=== PATIENT | female | born 1985 | race Caucasian/White ===

== ENCOUNTER 2020-01-08 18:13 | Inpatient (IN) | payer OTHER ==
[2020-01-08] MEDS ORDERED: PROMETHAZINE HCL 25 MG/1 ML VIAL IVPUSH ONE (20:23)
[2020-01-08] MEDS ORDERED: BUTORPHANOL TARTRATE 1 MG/ML VIAL IVPB ONE (20:23)
[2020-01-08] MEDS ORDERED: AMPICILLIN - 2 GM in SODIUM CHLORIDE 100 ML IVPB ONE ×2 (20:29→20:43)
[2020-01-08] MEDS ORDERED: ELECTROLYTE-148 SOLN 1,000 ML IV SCH (20:30)
[2020-01-08] MEDS ORDERED: OXYTOCIN 30 UNITS in 0.9% NS 30 UNIT/500 ML INFUS.BAG IVPB SCH (20:30)
--- NOTE | 2020-01-08 20:37 | HP ---
Past Medical History - Primary Care Physician PCP:: Miguel Angel Nelson - Admission Chief Complaint: 34yo P0 with at EGA 39wks with painful contractions since 10am on 01/06/2020. History of Present Illness: Pt was seen in-office this morning and noted to be in early labor. She went home and came back to L&D with painful contractions. No LOF, no VB (has some spotting), reports good FM. History Source: Patient, Medical Record Limitations to Obtaining History: No Limitations - Past Medical History ANDROID PLATFORM DEVELOPER: No: Alzheimer's, CVA, Dementia, Migraine, Multiple Sclerosis, Peripheral Neuropathy, Parkinson's, Seizure, Syncope, TIA, Vertigo, Other Cardiovascular: No: AFIB, Aneurysm, Aortic Insufficiency, Aortic Stenosis, CAD, CHF, Deep Vein Thrombosis, HTN, Hyperlipdemia, MN, Mitral Insufficiency, Mitral Stenosis, Murmur, Pulmonary Hypertension, Other Pulmonary: No: Asthma, Bronchitis, Cancer, COPD, O2 Dependent, Pneumonia, Previously Intubated, Pulmonary Embolus, Pulmonary Fibrosis, Sleep Apnea, Other Gastrointestinal: Yes: Other (Ulcerative proctitis) Hepatobiliary: No: Cirrhosis, Cholelithiasis, Cholecystitis, Choledocholithiasis, Hepatitis A, Hepatitis B, Hepatitis C, Other Renal/: No: Renal Failure, Renal Inusuff, BPH, Cancer, Hematuria, Hemodialysis, Neurogenic Bladder, Renal Calculi, UTI, Other Reproductive: No: Ectopic , Endometriosis, Fibroids, PID, Polycystic Ovary Syndrome, Postmenopausal, Other ...: 1 ...Para: 0 ...Term: 0 ...: 0 ...Spon : 0 ...Induced : 0 ...Living Children: 0 ...LMP: 04/10/19 ... Weeks Gestation by Dates: 39.0 ...EDC by Dates: 01/15/20 Heme/Onc: No: Anemia, B12 Deficiency, Bleeding Disorder, Cancer, Current Chemotherapy, Current Radiation Therapy, Hemochromatosis, Hypercoaguable State, Myeloproliferative Synd, Sickle Cell Disease, Sickle Cell Trait, Thrombocytopenia, Other Infectious Disease: No: AIDS, C-Diff, Herpes Zoster, HIV, MRSA, STD's, Tuberculosis, VREF, Other Psych: No: Addictions, Anxiety, Bipolar, Depression, Panic, Psychosis, Schizophrenia, Other Musculoskeletal: No: Bursitis, Chronic low back pain, Hemiparesis, Hemiplegia, Osteoarthritis, Paraplegia, Other Rheumatology: No: Fibromyalgia, Gout, Lupus, Rheumatoid Arthritis, Sarcoidosis, Vasculitis, Other ENT: No: Allergic Rhinitis, Sinusitis, Other Endocrine: No: Allen's Disease, [place]'s Disease, Diabetes Insipidus, Diabetes Mellitus, Hyperparathyroidism, Hyperthyroidism, Hypothyroidism, Osteopenia, SIADH, Other Dermatology: Yes: Other (Seborrheic dermatitis) - Past Surgical History Past Surgical History: Yes: None Hx Myomectomy: No Hx Transabdominal Cerclage: No Additional Surgical History: ENT nasal septum surgery, inverted nipples surgery - Advance Directives Advance Directives: No: Living Will, Health Care Proxy, DNR, Organ Donor, Tissue Donor, MOLST - Smoking History Smoking history: Never smoked Have you smoked in the past 12 months: No - Alcohol/Substance Use Hx Alcohol Use: No History of Substance Use: reports: None - Social History Usual Living Arrangement: Yes: With Spouse Do you think of yourself as: Straight/Heterosexual ADL: Independent History of Recent Travel: No Home Medications - Allergies Allergies/Adverse Reactions: Allergies Allergy/AdvReac Type Severity Reaction Status Date / Time No Known Allergies Allergy Verified 01/08/20 18:22 - Home Medications Home Medications: Ambulatory Orders Pnv No.95/Ferrous Fum/Folic AC [ Formula] 1 each PO DAILY 12/04/19 Mesalamine Suppository [Canasa Suppository -] 1 supp [place] PRN PRN 01/06/20 Family Medical History Family Hx Coronary Artery Disease: Father (high cholesterol) Family Hx Nuerologic Problems: Mother (MS) Review of Systems - Review of Systems Constitutional: reports: No Symptoms Eyes: reports: No Symptoms HENT: reports: No Symptoms Neck: reports: No Symptoms Cardiovascular: reports: No Symptoms Respiratory: reports: No Symptoms Gastrointestinal: reports: No Symptoms Genitourinary: reports: No Symptoms Breasts: reports: No Symptoms Reported Musculoskeletal: reports: No Symptoms Integumentary: reports: No Symptoms Neurological: reports: No Symptoms Endocrine: reports: No Symptoms Hematology/Lymphatic: reports: No Symptoms Psychiatric: reports: No Symptoms Pain Intensity: 2 Physical Exam - Maternity Vital Signs: Vital Signs Temperature 98.9 F 01/08/20 18:32 Pulse Rate 97 H 01/08/20 18:32 Respiratory Rate 17 01/08/20 18:32 Blood Pressure 112/79 01/08/20 18:32 O2 Sat by Pulse Oximetry (%) Constitutional: Yes: Well Nourished, No Distress, Calm Eyes: Yes: WNL, Conjunctiva Clear, EOM Intact HENT: Yes: WNL, Atraumatic, Normocephalic Neck: Yes: WNL, Supple, Trachea Midline Cardiovascular: Yes: WNL, Regular Rate and Rhythm Lungs: Clear to auscultation, Normal air movement Breast(s): Yes: WNL - Abdominal Exam/OB Fundal Height: 39 Number of Fetuses: Single Presentation: Vertex Contractions: Yes Regularity: Regular Intensity: Moderate Monitor Mode: External Heart Rate (range): 140 Heart Rate Location: Midline Category: I Accelerations: Non-Uniform Decelerations: None - Vaginal Exam/OB Vaginal Bleeding: Yes, Bloody Show Speculum Exam: No Dilatation (cm): 1 Effacement (%): 80 Amniotic Membrane Status: Intact Presentation: Vertex/Position Station: -3 (Adequate gynecoid pelvimetry. EFW ~3200 gm by Refugio maneuvers.) - Physical Exam Musculoskeletal: Yes: WNL Extremities: Yes: WNL Edema: No Integumentary: Yes: WNL Deep Tendon Reflex Grade: Normal +2 ...Motor Strength: WNL Psychiatric: Yes: WNL, Alert, Oriented Hemorrhage Risk Assessment - Risk Factors Medium Risk Factors: Yes: None High Risk Factors: Yes: None Risk Score: 1 Risk Level: Medium Risk Imaging - Results Ultrasound: Report Reviewed Assessment/Plan 34yo P0 with at EGA 39wks with painful contractions since 10am on 01/06/2020. The pt is in prodromal labor, latent phase. Fetus with Category I tracing. Pt does not wish to go home due to pain. Plan to admit for pain mgt and augment contractions. We had long discussion re: risks, benefits, and alternatives of labor augmentation. I explained the options of expectant management awaiting spontaneous labor progression, and elective section. The risks of uterine tachysystole, distress, uterine rupture, need for emergency C/S, hemorrhage, infection, scarring, etc. were discussed. We also discussed the risks of meconium aspiration, shoulder dystocia, and anesthesia options. The pt requested to proceed with augmenting ctx's.
[2020-01-08] MEDS ORDERED: AMPICILLIN SODIUM 2 GM VIAL ONE (21:07)
[2020-01-08 21:33] LABS: BASO % 0.5 % (0-2.0); EOS % 0.4 % (0-4.5); HEMATOCRIT 33.4 % (32.4-45.2); HEMOGLOBIN 11.1 GM/dL (10.7-15.3); LYMPH % 15.6 % (8-40); MCH 29.9 pg (25.7-33.7); MCHC 33.3 g/dl (32.0-36.0); MEAN CELL VOLUME 89.6 fl (80-96); MONO % 8.6 % (3.8-10.2); NEUT % 74.9 % (42.8-82.8); PLATELET COUNT 353 K/MM3 (134-434); RBC 3.73 M/mm3 (3.60-5.2); RDW 13.9 % (11.6-15.6); WHITE BLOOD COUNT 12.6 K/mm3 (4.0-10.0)
[2020-01-08 21:46] LABS: INR 0.93 (0.83-1.09)
[2020-01-08 21:49] LABS: ACTIVATED PTT 23.7 SECONDS (25.2-36.5)
[2020-01-08 21:54] LABS: BLOOD UREA NITROGEN 10.4 mg/dL (7-18); CREATININE 0.8 mg/dL (0.55-1.3); POTASSIUM 3.8 mmol/L (3.5-5.1)
[2020-01-08] MEDS ORDERED: OXYTOCIN 30 UNITS in 0.9% NS 30 UNIT/500 ML INFUS.BAG IVPB ONE (21:58)
[2020-01-08] MEDS ORDERED: BUTORPHANOL TARTRATE 2 MG/ML VIAL ONE (22:24)
[2020-01-08] MEDS ORDERED: PROMETHAZINE HCL 25 MG/1 ML VIAL ONE (22:24)
[2020-01-08 22:45] VITALS: BMI 28.7
[2020-01-09] MEDS ORDERED: AMPICILLIN - 1 GM in SODIUM CHLORIDE 100 ML IVPB SCH (00:30)
[2020-01-09] MEDS ORDERED: FENTANYL/BUPIVACAINE/NS/PF - PCEA - 50 ML DISP.SYRIN EP ONE ×2 (00:51→03:59)
[2020-01-09] MEDS ORDERED: PCA PUMP NR ONE (00:51)
[2020-01-09] MEDS ORDERED: NALOXONE HCL 0.4 MG/ML VIAL IVPUSH PRN (01:27)
[2020-01-09] MEDS ORDERED: AMPICILLIN SODIUM 1 GM VIAL ONE ×2 (01:28→05:49)
[2020-01-09] MEDS ORDERED: FENTANYL/BUPIVACAINE/NS/PF - PCEA - 50 ML DISP.SYRIN EP SCH (01:30)
[2020-01-09] MEDS: AMPICILLIN - 1 GM in SODIUM CHLORIDE 100 ML IVPB SCH ×2 (01:41→05:45)
[2020-01-09] MEDS ORDERED: ACETAMINOPHEN INJECTION 100 ML IVPB ONE (03:58)
[2020-01-09] MEDS ORDERED: CLINDAMYCIN 600MG PREMIX IVPB 600 MG/50 ML BAG IVPB ONE (04:15)
[2020-01-09] MEDS ORDERED: GENTAMICIN 100 MG/100 ML BAG IVPB ONE (04:15)
[2020-01-09] MEDS ORDERED: ACETAMINOPHEN 1000 MG/100 ML VIAL (NON FORMULARY) IVPB ONE ×2 (04:15→09:00)
[2020-01-09] MEDS ORDERED: CLINDAMYCIN PHOSPHATE 600 MG/4 ML VIAL ONE (04:23)
[2020-01-09] MEDS ORDERED: GENTAMICIN SO4 80 MG/2 ML VIAL ONE (05:06)
[2020-01-09] MEDS ORDERED: OXYTOCIN 20 UNITS in 0.9% NS 20 UNIT/1,000 ML INFUS.BAG IV ONE ×2 (05:50→08:25)
--- NOTE | 2020-01-09 05:50 | PN ---
Progress Note, Labor Vaginal Exam #1 Labor Exam Date: 01/09/20 Labor Exam Time: 05:30 Heart Rate (range): 180's Dilatation: 4-5 Effacement (%): 80 Amniotic Membrane Status: Bulging Presentation: Vertex/Position Station: -2 Remarks: Swollen cervix, Chorioamnionitis, tachycardia signs of dysfunctional labor offered a c/section All risks/benefits/alternatives explained Risk of uterine atony, and significant blood loss explained Consent signed
[2020-01-09] MEDS ORDERED: OXYTOCIN 10 UNITS/ML VIAL ONE (06:02)
[2020-01-09] MEDS ORDERED: KETOROLAC TROMETHAMINE 30 MG/1 ML VIAL ONE (06:25)
[2020-01-09] MEDS ORDERED: ONDANSETRON 4 MG/2 ML VIAL IVPUSH PRN (06:39)
[2020-01-09] MEDS ORDERED: morphine SULFATE/PF 0.5 MG/ML (2cc Syringe - QUVA) EP ONE (06:39)
--- NOTE | 2020-01-09 07:01 | OP ---
Operative Note - Note: Operative Date: 01/09/20 Pre-Operative Diagnosis: 34yo P0 @ 39wks with dysfunctional labor, Chorioamnionitis, tachicardia remote from delivery Operation: Primary c/section Findings: Viable female in transverse arrest Peds present Cloudy amniotic fluid Placenta to pathology normal bl tubes and ovaries Post-Operative Diagnosis: Same as Pre-op Surgeon: Anna Ramires Keypunch Operators Supervisor: Petr Harrell Anesthesiologist/MOLDER PUNCH: Catalina Curry Anesthesia: Epidural Specimens Removed: Placenta to path Estimated Blood Loss (mls): 500 Drains, Volume Out (mls): 300 Fluid Volume Replaced (mls): 1,700
[2020-01-09] MEDS ORDERED: CITRIC ACID/SODIUM CITRATE 30 ML UNIT-DOSE CUP PO ONE (07:02)
[2020-01-09] MEDS ORDERED: diphenhydrAMINE HCL 25 MG CAPSULE (FP) PO PRN (07:03)
[2020-01-09] MEDS ORDERED: METHYLERGONOVINE MALEATE 0.2 MG/1 ML AMP IM PRN (07:03)
[2020-01-09] MEDS ORDERED: WITCH HAZEL 50% (TUCKS) 40 PAD/JAR PAD TP PRN (07:03)
[2020-01-09] MEDS ORDERED: oxyCODONE HCL 5 MG TABLET PO PRN (07:03)
[2020-01-09] MEDS ORDERED: IBUPROFEN 600 MG TABLET (FP) PO PRN (07:03)
[2020-01-09] MEDS ORDERED: IBUPROFEN 800 MG/8 ML IJ IVPB PRN (07:03)
[2020-01-09] MEDS ORDERED: BENZOCAINE 20% 57 GM BOTTLE TP PRN (07:03)
[2020-01-09] MEDS ORDERED: BENZOCAINE 28 GM HEMORRHOIDAL OINTMENT PR PRN (07:03)
[2020-01-09] MEDS ORDERED: OXYTOCIN 20 UNITS in 0.9% NS 20 UNIT/1,000 ML INFUS.BAG IV SCH (07:15)
--- NOTE | 2020-01-09 07:31 | PN ---
Delivery - Delivery Section: Primary Type of Anesthesia: Epidural Episiotomy/Laceration: None EBL (cc): 500 Delivery, Single - Stages of Labor Date 1st Stage Initiatied: 01/07/20 Time 1st Stage Initiated: 10:00 Date of Delivery: 01/09/20 Time of Delivery: 06:11 Time Placenta Delivered: 06:12 Placenta: Yes: Expressed - Condition of Infant Housekeeping Assistant/Enhanced Environmental Operator Present: Yes Name: Smitha Matamoros Infant Gender: Female Weight: 6 lb 14 oz Position: Right, OT Total Hours ROM (Hrs/Mins): 42mins - 1 Minute Total Score: 9 5 Minutes Total Score: 9 - [place] Feeding Plan Initial Plan: Exclusive throughout hospitalization Benefits of Exclusively reinforced: Yes Remarks - Remarks Remarks: All layer closure on c/section mother and baby stable at the end of the procedure
[2020-01-09 08:31] LABS: CORD BASE EXCESS -3.7 mmol/L (0-2); CORD HCO3 22.1 mmHg (20-29); CORD PCO2 42.3 mmHg (30-78); CORD pH 7.335 (7.14-7.44)
[2020-01-09 08:33] LABS: CORD HCO3 24.5 mmHg (20-29); CORD PCO2 52.3 mmHg (30-78); CORD pH 7.289 (7.14-7.44)
[2020-01-09] MEDS ORDERED: GENTAMICIN 80 MG PREMIXED IVPB 80 MG/100 ML BAG IVPB SCH (10:00)
[2020-01-09] MEDS: CEFAZOLIN 1 GM/D5W 1 GM/50 ML BAG IVPB SCH ×2 (10:20→17:57)
[2020-01-09] MEDS: SIMETHICONE 80 MG TAB.CHEW (FP) PO PRN (22:39)
[2020-01-10] MEDS: CEFAZOLIN 1 GM/D5W 1 GM/50 ML BAG IVPB SCH (02:39)
[2020-01-10] MEDS: ACETAMINOPHEN 325 MG TABLET (FP) PO PRN ×3 (03:10→21:27)
[2020-01-10] MEDS: IBUPROFEN 600 MG TABLET (FP) PO PRN ×3 (03:10→21:28)
[2020-01-10] MEDS: SIMETHICONE 80 MG TAB.CHEW (FP) PO PRN ×3 (03:11→21:28)
[2020-01-10] MEDS ORDERED: BISACODYL 10 MG SUPP.RECT PR PRN (07:03)
[2020-01-10 09:06] LABS: BASO % 0.3 % (0-2.0); EOS % 1.4 % (0-4.5); HEMATOCRIT 34.6 % (32.4-45.2); HEMOGLOBIN 11.5 GM/dL (10.7-15.3); LYMPH % 12.6 % (8-40); MCH 30.8 pg (25.7-33.7); MCHC 33.3 g/dl (32.0-36.0); MEAN CELL VOLUME 92.6 fl (80-96); MEAN PLT VOLUME 7.4 fl (7.5-11.1); MONO % 7.2 % (3.8-10.2); NEUT % 78.5 % (42.8-82.8); PLATELET COUNT 320 K/MM3 (134-434); RBC 3.74 M/mm3 (3.60-5.2); RDW 13.7 % (11.6-15.6); WHITE BLOOD COUNT 14.2 K/mm3 (4.0-10.0)
--- NOTE | 2020-01-10 13:42 | PN ---
Progress Note (short form) - Note Progress Note: Post op day#1.S/P C Section under epidural anesthesia with Duramorph u neventful.Patient stable and c/o little pain for which she is on medication.No any anesthesia related problem.Patient DC from the anesthesia care.
--- NOTE | 2020-01-10 13:56 | OP ---
DATE OF OPERATION: 01/09/2020 PREOPERATIVE DIAGNOSIS: A 34-year-old para 0 at 39 weeks with chorioamnionitis, tachycardia remote from delivery, and dysfunctional labor. POSTOPERATIVE DIAGNOSIS: A 34-year-old para 0 at 39 weeks with chorioamnionitis, tachycardia remote from delivery, and dysfunctional labor. PROCEDURE: Primary low-segment transverse section. SURGEON: Anna Ramires MD TURBINE TECHNICIAN: KATTY Pfeiffer ANESTHESIOLOGIST: MILLA Gautam DESCRIPTION OF PROCEDURE: After assuring informed consent and discussing all risks, benefits, and alternatives, the patient was brought to the operating room where she was placed in dorsal supine position with left lateral tilt after assuring adequate level of anesthesia. A Pfannenstiel skin incision was created with a scalpel and brought down to the level of fascia with a scalpel. The fascia was incised in the midline and extended bilaterally with Bovie cautery. The fascia was dissected off the rectus abdominis muscle with Bovie cautery. Rectus abdominis muscle was split in the midline and dissected superiorly and inferiorly with Bovie cautery. The peritoneum was entered bluntly with good visualization of underlying organs. The peritoneal incision was stretched. The bladder was retracted with lower edge of the Camelia. The bilateral gutters were packed with moist lap sponges. The vesicouterine peritoneum was identified and dissected with Metzenbaum scissors. Retracted was the lower edge of the Camelia. Lower segment transverse incision was created with a scalpel. Very thin uterus was stretched bilaterally to extend the uterine incision with good visualization of uterine arteries. The 's head was delivered atraumatically as well as the rest of the infant's body. Cord was clamped and cut and infant was handed to awaiting packaging manager. It was a female with Apgars 9 and 9. Her weight was found to be 6 pounds 14 ounces. Placenta was expressed. The uterus was cleared of clots and debris. Placenta was sent to pathology. Cord was given for cord gases. Uterus was repaired in 2 layers with 0 Biosyn with excellent hemostasis. Uterus contracted well spontaneously. Abdomen was irrigated. Lap sponges were removed. Peritoneum was repaired with 0 Biosyn. Muscle was reapproximated at the midline with 0 Biosyn. The fascia was repaired with 0 Vicryl in 1 suture. The subcutaneous layer was reapproximated with 0 Biosyn. The skin was closed with 4-0 Biosyn on a Garrett needle. Excellent hemostasis was noted throughout. Estimated blood loss was 500 mL. The patient put out 300 mL of urine and received 1700 of IV fluids. The sponge count and instrument count was correct x2. The patient tolerated the procedure well and was brought to the recovery room in stable condition. Christian [id number]
--- NOTE | 2020-01-10 18:09 | PN ---
Post Progress Note - Subjective Subjective: Patient without acute complaints. Reports tolerating oral intake without nausea or vomiting. Ambulating without dizziness. Denies fevers or chills. Pain well controlled with oral pain medication. Pumping/breast feeding without issue. Passing flatus, no BM Post Day: 1 Type of Delivery: Primary C/S Vital Signs: Vital Signs Temperature 98.6 F 01/10/20 17:00 Pulse Rate 74 01/10/20 17:00 Respiratory Rate 20 01/10/20 17:00 Blood Pressure 101/69 01/10/20 17:00 O2 Sat by Pulse Oximetry (%) 98 01/09/20 08:15 Breast Exam: Yes: Soft Uterus: Yes: Fundus Firm, Fundus below umbilicus Incision: Yes: Sutures intact Abdomen/GI: Yes: Abdomen soft, Passing flatus, Tolerating PO Lochia: Yes: Rubra Lochia, amount: Small Extremities: Yes: Calves non-tender Perineum: Yes: Intact Activity: Ambulating - Labs Labs: CBC WBC 14.2 K/mm3 (4.0-10.0) H 01/10/20 08:55 RBC 3.74 M/mm3 (3.60-5.2) 01/10/20 08:55 Hgb 11.5 GM/dL (10.7-15.3) 01/10/20 08:55 Hct 34.6 % (32.4-45.2) 01/10/20 08:55 MCV 92.6 fl (80-96) 01/10/20 08:55 MCH 30.8 pg (25.7-33.7) 01/10/20 08:55 MCHC 33.3 g/dl (32.0-36.0) 01/10/20 08:55 RDW 13.7 % (11.6-15.6) 01/10/20 08:55 Plt Count 320 K/MM3 (134-434) 01/10/20 08:55 MPV 7.4 fl (7.5-11.1) L 01/10/20 08:55 Absolute Neuts (auto) 11.1 K/mm3 (1.5-8.0) H 01/10/20 08:55 Neutrophils % 78.5 % (42.8-82.8) 01/10/20 08:55 Lymphocytes % 12.6 % (8-40) 01/10/20 08:55 Monocytes % 7.2 % (3.8-10.2) 01/10/20 08:55 Eosinophils % 1.4 % (0-4.5) D 01/10/20 08:55 Basophils % 0.3 % (0-2.0) 01/10/20 08:55 Nucleated RBC % 0 % (0-0) 01/10/20 08:55 Assessment/Plan 34yo P1 s/p primary LT C/S, doing well stable, afebrile. The pt is asymptomatic for s/sxs of anemia. care instructions reviewed. Postoperative care and instructions reviewed. Continue routine postop care. Ambulation encouraged.
[2020-01-11] MEDS: IBUPROFEN 600 MG TABLET (FP) PO PRN ×3 (05:35→16:48)
[2020-01-11] MEDS: SIMETHICONE 80 MG TAB.CHEW (FP) PO PRN ×4 (05:36→22:00)
[2020-01-11] MEDS: ACETAMINOPHEN 325 MG TABLET (FP) PO PRN ×4 (05:36→22:00)
--- NOTE | 2020-01-11 08:54 | PN ---
Post Progress Note - Subjective Subjective: Patient without acute complaints. Reports tolerating oral intake without nausea or vomiting. Ambulating without dizziness. Denies fevers or chills. Pain well controlled with oral pain medication. without difficulty. Passing flatus. Post Day: 2 Type of Delivery: Primary C/S Vital Signs: Vital Signs Temperature 98.3 F 01/11/20 07:30 Pulse Rate 70 01/11/20 07:30 Respiratory Rate 18 01/11/20 07:30 Blood Pressure 104/71 01/11/20 07:30 O2 Sat by Pulse Oximetry (%) 98 01/09/20 08:15 Breast Exam: Yes: Soft Uterus: Yes: Fundus Firm, Fundus below umbilicus Incision: Yes: Sutures intact. No: Redness, Oozing Abdomen/GI: Yes: Abdomen soft, Passing flatus, Tolerating PO. No: Abdominal Distention, Tender Extremities: Yes: Calves non-tender. No: Edema - Labs Labs: CBC WBC 14.2 K/mm3 (4.0-10.0) H 01/10/20 08:55 RBC 3.74 M/mm3 (3.60-5.2) 01/10/20 08:55 Hgb 11.5 GM/dL (10.7-15.3) 01/10/20 08:55 Hct 34.6 % (32.4-45.2) 01/10/20 08:55 MCV 92.6 fl (80-96) 01/10/20 08:55 MCH 30.8 pg (25.7-33.7) 01/10/20 08:55 MCHC 33.3 g/dl (32.0-36.0) 01/10/20 08:55 RDW 13.7 % (11.6-15.6) 01/10/20 08:55 Plt Count 320 K/MM3 (134-434) 01/10/20 08:55 MPV 7.4 fl (7.5-11.1) L 01/10/20 08:55 Absolute Neuts (auto) 11.1 K/mm3 (1.5-8.0) H 01/10/20 08:55 Neutrophils % 78.5 % (42.8-82.8) 01/10/20 08:55 Lymphocytes % 12.6 % (8-40) 01/10/20 08:55 Monocytes % 7.2 % (3.8-10.2) 01/10/20 08:55 Eosinophils % 1.4 % (0-4.5) D 01/10/20 08:55 Basophils % 0.3 % (0-2.0) 01/10/20 08:55 Nucleated RBC % 0 % (0-0) 01/10/20 08:55 Assessment/Plan 34 yo POD # 2 s/p primary CD, afebrile, vital signs stable, doing well 1. Desire DC home tomorrow 2. Continue routine postoperative care 3. Will continue postop care
--- NOTE | 2020-01-11 08:59 | DS ---
Physical Exam-TORQUE TESTER Vital Signs: Vital Signs Temperature 98.3 F 01/11/20 07:30 Pulse Rate 70 01/11/20 07:30 Respiratory Rate 18 01/11/20 07:30 Blood Pressure 104/71 01/11/20 07:30 O2 Sat by Pulse Oximetry (%) 98 01/09/20 08:15 Labs: CBC, BMP 01/10/20 08:55 01/08/20 21:14 Delivery - Delivery Section: Primary Type of Anesthesia: Epidural Episiotomy/Laceration: None EBL (cc): 500 Delivery, Single - Stages of Labor Date 1st Stage Initiatied: 01/07/20 Time 1st Stage Initiated: 10:00 Date of Delivery: 01/09/20 Time of Delivery: 06:11 Time Placenta Delivered: 06:12 Placenta: Yes: Expressed - Condition of Infant Checker Loader/Composing Machine Operator/Tender Present: Yes Name: Smitha Matamoros Infant Gender: Female Weight: 6 lb 14 oz Position: Right, OT Total Hours ROM (Hrs/Mins): 42mins - 1 Minute Total Score: 9 5 Minutes Total Score: 9 - [place] Feeding Plan Initial Plan: Exclusive throughout hospitalization Benefits of Exclusively reinforced: Yes Discharge Summary Problems reviewed: Yes Reason For Visit: LABOR ADMIT Current Active Problems delivery delivered (Acute) Chorioamnionitis (Acute) Procedures: Principal: delivery Hospital Course: Patient admitted in labor Developed symptoms of chorioamnionitis, remote from delivery, underwent primary CD Patient voiding, ambulating, pain well controlled, stable CBC, remained afebrile and stable for DC home POD # 3 Condition: Good - Instructions Diet, Activity, Other Instructions: Follow up in 1-2 weeks for incision check Physical activity Resume your normal everyday activity as tolerated no heavy lifting or exercise until seen by your surgeon. You may walk unlimited delores of and climb stairs. You may resume driving the car when you feel safe and comfortable behind the wheel. No sexual activity as instructed. Wound care If you have a bandage, leave it on, and keep dry for 48-72 hours. After that time discard the outer bandage. If they are tapes on the skin under the out of bandage leave them in place. They will peel off in the next 7 to 10 days. Do Not Peel them off. You may shower the day after surgery. If there are tapes present on the skin, you may shower over them. Diet There are no dietary restrictions. Eat healthy, high-fiber foods. Drink 6 to 8 glasses of liquid each day. This will assist in keeping your bowels are regular. Pain management You may take Tylenol or acetaminophen or Ibuprofen (for example, Motrin, Advil etc.) from my pain prescription medication is ordered should be taken as prescribed for moderate to severe pain. Call MD for any of the following: Severe pain not relieved by medication Fever of 101 or higher Excessive bleeding or drainage on dressing Inability to urinate [place] PMPReference #: [id number] Referrals: Anna Ramires MD [Staff Physician] - Miguel Angel Nelson MD [Staff Physician] - Disposition: HOME - Home Medications Comprehensive Discharge Medication List: Ambulatory Orders Pnv No.95/Ferrous Fum/Folic AC [ Formula] 1 each PO DAILY 12/04/19 Mesalamine Suppository [Canasa Suppository -] 1 supp AR PRN PRN 01/06/20 Prescription Drug Monitoring Program (I-STOP) results: I-STOP reviewed and no issues identified (Reference #: [id number])
[2020-01-11] MEDS ORDERED: SENNOSIDES/DOCUSATE COMBO (SENNA PLUS) TABLET (UD) PO PRN (22:00)
[2020-01-12] MEDS: SIMETHICONE 80 MG TAB.CHEW (FP) PO PRN (03:08)
[2020-01-12] MEDS: ACETAMINOPHEN 325 MG TABLET (FP) PO PRN (03:08)
[2020-01-12] MEDS: IBUPROFEN 600 MG TABLET (FP) PO PRN (03:09)
--- NOTE | 2020-01-12 06:33 | PN ---
Progress Note (short form) - Note Progress Note: pod 3 s/p c/s , has difficulty with pumping previous hx of nipple surgery CBC, BMP 01/10/20 08:55 01/08/20 21:14 Last Vital Signs Temp Pulse Resp BP Pulse Ox 98.2 F 87 18 106/80 98 01/11/20 22:00 01/11/20 22:00 01/11/20 22:00 01/11/20 22:00 01/09/20 08:15 abdomen soft, no distension, no cva uterus firm incision dry, clean no calf tenderness plan. consult cbc plan for d/c home today follow up ofice 1 week
[2020-01-12 07:32] LABS: BASO % 0.5 % (0-2.0); EOS % 1.8 % (0-4.5); HEMATOCRIT 34.7 % (32.4-45.2); HEMOGLOBIN 11.5 GM/dL (10.7-15.3); LYMPH % 13.9 % (8-40); MCH 30.2 pg (25.7-33.7); MCHC 33.2 g/dl (32.0-36.0); MEAN CELL VOLUME 91.2 fl (80-96); MEAN PLT VOLUME 7.4 fl (7.5-11.1); MONO % 5.3 % (3.8-10.2); NEUT % 78.5 % (42.8-82.8); PLATELET COUNT 380 K/MM3 (134-434); RBC 3.81 M/mm3 (3.60-5.2); RDW 13.8 % (11.6-15.6)
[2020-01-12 09:05] VITALS: BP 101/71; PULSE 79; TEMP 98
--- NOTE | 2020-01-12 19:51 | PATH ---
Surgical Pathology Report Patient Name: EMPERATRIZ RUSSELL Med. Rec. 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 Specimen(s) Received PLACENTA Clinical History , 39.1 weeks, primary Final Diagnosis PLACENTA, SECTION: 399 G THIRD TRIMESTER PLACENTA WITH TRIVASCULAR UMBILICAL CORD AND UNREMARKABLE PLACENTAL MEMBRANES. Electronically Signed Lauren Quintana M.D. Gross Description The specimen is received fresh labeled placenta is a 399 gram, 18.0 x 15.0 x 2.4 cm. placenta with attached membranes and umbilical cord. The attached membranes are carpenter, translucent with focal opacities and insert marginally. The umbilical cord measures 13 cm. in length and averages 1 cm. in diameter. The cord inserts eccentrically, 6 cm. to the nearest margin. No true knots or strictures are identified. Cut surface of the umbilical cord reveals 3 vessels. The surface is smith-blue with minimal fibrin deposition and appropriate caliber vessels. The maternal surface is red-brown with focal defects. Sectioning reveals red-brown, spongy parenchyma. No lesions are identified. Airworthiness Safety Inspector sections are submitted in three cassettes as follows: 1- membrane rolls and umbilical cord; 2-3- full thickness sections of placenta. saudi/01/11/2020
== END 2020-01-12 13:10 | disposition home or self-care (01) | DRG 786 ==
LOC: JDEL 18:13 → JLDR 20:23 → J3W 01-09 08:47
PROVIDERS: ADMIT Obstetrics & Gynecology; ATTEND Obstetrics & Gynecology
PROC: 10D00Z1 Extraction of Products of Conception, Low, Open Approach (ICD-10-PCS; principal; 2020-01-09)
DX: O82 Encounter for cesarean delivery without indication (principal); O41.1230 Chorioamnionitis, third trimester, not applicable or unspecified; O76 Abnormality in fetal heart rate and rhythm complicating labor and delivery; O62.9 Abnormality of forces of labor, unspecified; O62.8 Other abnormalities of forces of labor; Z3A.39 39 weeks gestation of pregnancy; Z37.0 Single live birth
CPT/HCPCS: 36415; 36600; 59025; 80048; 82803; 85025; 85610; 85730; 86780; 86850; 86900; 86901; 87389; 88307-TC; J0131; U0003